=== PATIENT | male | born 1945 | race Asian ===

== ENCOUNTER 2019-12-25 17:04 | Emergency (ER) | payer OTHER ==
[~2019-12-25] VITALS: Ht 167.6 cm; Wt 68.0 kg
[2019-12-25 19:42] LABS: BASOPHILS % 0.9 % (0.0-2.0); EOSINOPHILS % 5.2 % (0.0-5.0); HEMATOCRIT. 46.8 % (42.0-52.0); HEMOGLOBIN. 15.4 g/dL (14.0-18.0); LYMPHOCYTES % 19.1 % (20.0-50.0); MEAN CORPUSCULAR HEMOGLOBIN 29.8 pg (28.0-32.0); MEAN CORPUSCULAR VOLUME 90.5 fL (80.0-94.0); MEAN PLATELET VOLUME 6.6 fl (7.4-10.4); MONOCYTES % 10.8 % (2.0-8.0); PLATELET 307 x1000/uL (130-400); RED BLOOD CELL COUNT 5.17 mill/uL (4.7-6.1); RED CELL DISTRIBUTION WIDTH 15.9 % (11.6-14.6)
[2019-12-25 19:46] LABS: CHLORIDE 104 mEq/L (98-107)
[2019-12-25 19:48] LABS: PROTHROMBIN TIME 10.4 sec (9.6-11.0)
[2019-12-25] MEDS ORDERED: ACETAMINOPHEN 325MG TABLET PO ONE (20:15)
[2019-12-25] MEDS ORDERED: LIDOCAINE 5% PATCH TOP SCH (20:30)
[2019-12-25 21:00] VITALS: BP 125/73
[2019-12-25] MEDS ORDERED: CEFTRIAXONE 1 G PREMIX 50 ML IV ONE (21:45)
[2019-12-25] MEDS ORDERED: DOXYCYCLINE HYCLATE 100MG CAPSULE PO ONE (21:45)
== END 2019-12-25 23:46 | disposition home or self-care (01) ==
LOC: EDBD 17:04 → ER 17:04 → CANBEDREQ 23:58
DX: R53.1 Weakness (principal); E87.2 Acidosis; M54.5 Low back pain; C78.00 Secondary malignant neoplasm of unspecified lung; I10 Essential (primary) hypertension; W01.198A Fall on same level from slipping, tripping and stumbling with subsequent striking against other object, initial encounter; Y93.89 Activity, other specified; Y92.512 Supermarket, store or market as the place of occurrence of the external cause; Z85.028 Personal history of other malignant neoplasm of stomach
CPT/HCPCS: 36415; 71045; 71250; 72131; 80053; 83605; 84145; 84484; 85025; 93005; 99285